=== PATIENT | male | born 1970 | race Caucasian/White ===

== ENCOUNTER 2017-01-20 22:11 | Emergency (ER) | payer MEDICARE, BC ==
[~2017-01-20] VITALS: Ht 167.6 cm; Wt 81.8 kg
[~2017-01-20 22:11] MED LIST: ATIVAN 1MG T1 MG/TAB PO; CATAPRES-TTS 20.2 M1 TD; KLONOPIN 0.5MG0.5 MG PO; KLONOPIN2 MG PO; ROXICODONE 55 MG/TAB PO
[2017-01-20] MEDS ORDERED: ULTRAM 50MG TAB50 MG PO (22:21)
[2017-01-20] MEDS ORDERED: KLONOPIN 0.5MG0.5 MG PO (22:21)
[2017-01-20 22:22] VITALS: TEMP 98.9
[2017-01-20] MEDS ORDERED: SOMA 350MG350 MG/TAB PO (22:22)
[2017-01-20 23:21] VITALS: BP 145/91; PULSE 97
== END 2017-01-20 23:22 | disposition home or self-care (01) ==
LOC: COL.ER 22:11
DX: R10.2 Pelvic and perineal pain (principal); I10 Essential (primary) hypertension; F41.9 Anxiety disorder, unspecified; G89.29 Other chronic pain; Z87.39 Personal history of other diseases of the musculoskeletal system and connective tissue; Z90.89 Acquired absence of other organs
CPT/HCPCS: J1170

== ENCOUNTER → 2017-03-06 | Outpatient (REF) ==
[~2017-03-06] MED LIST changes: +SOMA 350MG350 MG/TAB PO; +ULTRAM 50MG TAB50 MG PO
[2017-03-06 19:00] LABS: PSA-TOTAL 0.22 ng/mL (0-4); THYROID STIMULATING HORMONE 2.06 uIU/mL (0.465-4.680)
== END ==
LOC: ZLAB.WCH 18:12
PROVIDERS: Internal Medicine
DX: Z01.89 Encounter for other specified special examinations (principal)
CPT/HCPCS: G0103

== ENCOUNTER → 2017-08-06 | Outpatient (CLI) | payer MEDICARE, BC | LOC: COL.RAD 09:23 | DX: M51.26 Other intervertebral disc displacement, lumbar region (principal); S39.93XA Unspecified injury of pelvis, initial encounter; G58.8 Other specified mononeuropathies; G89.29 Other chronic pain; Z98.890 Other specified postprocedural states | CPT/HCPCS: A9585 ==

== ENCOUNTER 2017-09-05 20:48 | Emergency (ER) | payer MEDICARE, BC ==
[~2017-09-05] VITALS: Ht 167.6 cm; Wt 79.5 kg
[2017-09-05 20:51] VITALS: TEMP 97.6
[2017-09-05] MEDS ORDERED: CATAPRES 0.1MG0.1 MG PO (21:19)
[2017-09-05] MEDS ORDERED: SOMA 350MG350 MG/TAB PO (21:21)
[2017-09-05 21:23] LABS: BASO % 0.5 % (0.0-2.0); EOS # 0.1 (0.0-0.7); EOS % 1.4 % (0-4.0); GRAN # 5.2 (1.4-6.5); GRAN % 63.7 % (42.2-75.2); HEMATOCRIT 44.5 % (42.0-52.0); HEMOGLOBIN 15.3 g/dl (13.5-18.0); LYMPH # 1.8 (1.2-3.4); LYMPH % 22.3 % (20.0-51.0); MEAN CELL VOLUME 91 fl (80.0-100.0); MEAN CORPUSCULAR HEMOGLOBIN 31 pg (27.0-31.0); MEAN CORPUSCULAR HGB CONC 34 g/dl (33.0-37.0); MEAN PLATELET VOLUME 10.9 fl (7.4-10.4); MONO % 11.9 % (1.7-9.3); PLATELET COUNT 213 K/mm3 (130-400); RED BLOOD COUNT 4.91 M/mm3 (4.20-5.60); REDCELL DISTRIBUTION WIDTH-CV 13.5 % (11.5-14.5)
[2017-09-05 21:29] LABS: PROTHROMBIN TIME 11.5 SECONDS (9.7-12.8)
[2017-09-05 21:32] LABS: PARTIAL THROMBOPLASTIN TIME 31.1 SECONDS (26.0-37.0)
[2017-09-05 21:34] LABS: ALANINE AMINOTRANSFERASE 34 U/L (21-72); ALBUMIN 4.9 gm/dL (3.5-5.0); ALKALINE PHOSPHATASE 89 U/L (50-136); ANION GAP 14 mmol/L (7-16); AST,SGOT 20 U/L (15-37); BILIRUBIN,TOTAL 0.5 mg/dL (0.0-1.0); BLOOD UREA NITROGEN 10 mg/dL (9-20); CALCIUM 9.5 mg/dL (8.4-10.2); CARBON DIOXIDE 24 mmol/L (22-30); CHLORIDE 101 mmol/L (98-107); CREATININE, serum 0.85 mg/dL (0.66-1.25); GLUCOSE 97 mg/dL (74-106); POTASSIUM 3.6 mmol/L (3.4-5.0); SODIUM 139 mmol/L (137-145); TOTAL PROTEIN 7.6 gm/dL (6.4-8.2)
[2017-09-05 21:45] LABS: TROPONIN-I < 0.012 ng/mL (0.000-0.034)
[2017-09-05 22:00] VITALS: BP 139/106; PULSE 86
== END 2017-09-05 22:55 | disposition home or self-care (01) ==
LOC: COL.ER 20:48
PROVIDERS: Family Medicine
DX: I10 Essential (primary) hypertension (principal); F11.23 Opioid dependence with withdrawal
CPT/HCPCS: J1885; J2550; J7030

== ENCOUNTER → 2018-04-07 | Outpatient (REF) ==
[~2018-04-07] MED LIST changes: +CATAPRES 0.1MG0.1 MG PO
== END ==
LOC: ZLAB.WCH 16:06
DX: Z01.89 Encounter for other specified special examinations (principal)
CPT/HCPCS: G0103

== ENCOUNTER 2018-07-16 09:27 | Day surgery (SDC) | payer MEDICARE, BC ==
[~2018-07-16] VITALS: Ht 167.6 cm; Wt 87.1 kg
[2018-07-16] VITALS (9 sets, daily range): BP systolic 112–151; BP diastolic 75–100; PULSE 93–105; TEMP 97.5–99
[2018-07-16] MEDS ORDERED: ULTRAM 50MG TAB50 MG PO (10:45)
[2018-07-16] MEDS ORDERED: KLONOPIN 1MG1 MG PO (10:46)
[2018-07-17 00:50] VITALS: BP 131/78; PULSE 88; TEMP 98.1
[2018-07-17 03:33] VITALS: BP 127/79; PULSE 97; TEMP 97.8
[2018-07-17 08:28] VITALS: BP 126/86; PULSE 90; TEMP 97.8
[2018-07-17 11:59] VITALS: BP 128/76; PULSE 84; TEMP 98.5
== END 2018-07-17 14:10 | disposition home or self-care (01) ==
LOC: SDCO 09:27 → SURG 14:15 → SDCO 07-17 14:10
DX: K40.90 Unilateral inguinal hernia, without obstruction or gangrene, not specified as recurrent (principal); G89.29 Other chronic pain; R10.30 Lower abdominal pain, unspecified; R10.2 Pelvic and perineal pain; N42.83 Cyst of prostate; N40.1 Benign prostatic hyperplasia with lower urinary tract symptoms; R30.0 Dysuria; R35.1 Nocturia; R39.15 Urgency of urination; R35.0 Frequency of micturition; R39.198 Other difficulties with micturition; I10 Essential (primary) hypertension; Z87.442 Personal history of urinary calculi; N41.1 Chronic prostatitis; Z87.891 Personal history of nicotine dependence; Z79.899 Other long term (current) drug therapy; Z84.1 Family history of disorders of kidney and ureter; Z98.52 Vasectomy status
CPT/HCPCS: OP; C1781; J0690; J1100; J1170; J1885; J2405; J2704; J2710; J3010; J3480; J7120

== ENCOUNTER 2019-06-22 15:10 | Inpatient (IN) | payer MEDICARE, BC ==
[~2019-06-22] VITALS: Ht 167.6 cm; Wt 86.5 kg
[~2019-06-22 15:10] MED LIST changes: +KLONOPIN 1MG1 MG PO
[2019-07-16] VITALS (12 sets, daily range): BP systolic 100–143; BP diastolic 68–99; PULSE 99–124; TEMP 97.7–98.4
--- NOTE | 2019-07-16 06:48 | NUR ---
Patient arrived to [facility] for admission at 0600. He ambulates with steady gait. He is alert and oriented. His father, Kihei, accompanies him. Procedure confirmed, denies any questions, and verbalizes understanding. Patient states he was nauseated by the ERAS prep medications. He has been up since 0300 dry-heaving. He was unable to drink his pre-op gatorade, but completed all other aspects of the prep. His vitals are stable on room air. Notified KELLY Sommers of nausea - given 4mg IV Zofran preop, in addition to his ordered pre-op medications. PIV started in right hand with x1 attempt and no complications. Breath sounds clear bilaterally to auscultation. Clear S1S2 heart tones heard with regular rate noted. Right pupil is 4mm, round, reactive. Left pupil is 3mm, round, reactive. Moves all extremities equally and freely. Denies any pain, numbness, or tingling. +2 radial, DP, and PT pulses palpable. Dad, Krunal, at the bedside. Call light in reach.
--- NOTE | 2019-07-16 06:50 | NUR ---
Patient to PACU at this time for epidural with anesthesia. Patient belongings bags x2 taken to PACU with patient label on them at this time.
--- NOTE | 2019-07-16 11:30 | NUR ---
Patient has been having uncontrolled pain since getting back from surgery. He has an epidural. Anesthesia notified. They are in seeing him now. Patient stated that he feels like he either has to void or pass gas. Denies nausea. Explained this is what happens sometimes with this surgery and that the pain should calm down. Explained to use his epidural to control his pain. Explained how it works. Patient verbalized understanding. Call light within reach.
[2019-07-16 13:19] LABS: HEMATOCRIT 35.4 % (42.0-52.0); HEMOGLOBIN 11.8 g/dl (13.5-18.0); MEAN CELL VOLUME 92 fl (80.0-100.0); MEAN CORPUSCULAR HEMOGLOBIN 31 pg (27.0-31.0); MEAN CORPUSCULAR HGB CONC 33 g/dl (33.0-37.0); MEAN PLATELET VOLUME 10.7 fl (7.4-10.4); PLATELET COUNT 221 K/mm3 (130-400); RED BLOOD COUNT 3.85 M/mm3 (4.20-5.60); REDCELL DISTRIBUTION WIDTH-CV 12.8 % (11.5-14.5)
[2019-07-16 14:49] LABS: HEMOGLOBIN 11.6 g/dl (13.5-18.0)
[2019-07-16 14:51] LABS: HEMATOCRIT 34.5 % (42.0-52.0)
--- NOTE | 2019-07-16 18:09 | NUR ---
Patient resting comfortably throughout the afternoon, pleasant to converse with, states no further needs at this time, call light within reach, reported off to Lolita DOHERTY
--- NOTE | 2019-07-16 21:15 | NUR ---
Patient wants to stand at bedside. Assisted at this time. Does well. Back to bed, mildly shaky afterwards. Nichole drain to LIS, drsg to lower abdomen with shadowing. Burroughs cares provided. Urine peach colored. Remains on sips/chips until AM. Epidural infusing, pain is controlled, site to back is dry. Offers no concerns at this time.
[2019-07-17] VITALS (9 sets, daily range): BP systolic 125–158; BP diastolic 80–101; PULSE 63–113; TEMP 97.9–98.7
--- NOTE | 2019-07-17 02:26 | NUR ---
PATIENT COMPLAINS OF "GAS" PAINS. LEVSIN GIVEN. PT STOOD AT BEDSIDE AGAIN, THINKING THIS WOULD HELP THE DISCOMFORT. HAS NOT PASSED ANY FLATUS.
--- NOTE | 2019-07-17 03:45 | NUR ---
CHANGED DRAIN SPONGE AROUND FRANCISCO DRAINS DUE TO SATURATION. PATIENT STILL REPORTS GAS DISCOMFORT. ENCOURAGED TO CONTINUE USING THE EPIDURAL PAIN MANAGEMENT. IV SITE TO RIGHT HAND WITHOUT REDNESS OR SWELLING.
[2019-07-17 07:29] LABS: BASO % 0.1 % (0.0-2.0); GRAN # 13.8 (1.4-6.5); GRAN % 86.2 % (42.2-75.2); LYMPH # 0.7 (1.2-3.4); LYMPH % 4.4 % (20.0-51.0); MEAN CELL VOLUME 90 fl (80.0-100.0); MEAN CORPUSCULAR HGB CONC 34 g/dl (33.0-37.0); MEAN PLATELET VOLUME 10.9 fl (7.4-10.4); MONO # 1.4 (0.1-0.6); MONO % 8.7 % (1.7-9.3); PLATELET COUNT 208 K/mm3 (130-400); RED BLOOD COUNT 3.27 M/mm3 (4.20-5.60); REDCELL DISTRIBUTION WIDTH-CV 13.1 % (11.5-14.5)
[2019-07-17 07:30] LABS: HEMATOCRIT 29.5 % (42.0-52.0); HEMOGLOBIN 9.9 g/dl (13.5-18.0); MEAN CORPUSCULAR HEMOGLOBIN 30 pg (27.0-31.0)
[2019-07-17 07:36] LABS: CALCIUM 8.2 mg/dL (8.4-10.2); POTASSIUM 4.8 mmol/L (3.4-5.0)
--- NOTE | 2019-07-17 10:27 | NUR ---
AMRIK met with the patient and the patient's father, Roman (ph#[phone]), to discuss discharge plan. The patient lives in [place] with his parents. He states that he has been staying with him, due to his recent health problems. He reports independence with ADLs and does not have any DME. The patient's PCP is Dr. Eze Cruz and he receives his medications at [facility]. He reports no difficulties obtaining his meds. The patient does not have advanced directives completed, but he was interested in obtaining a form for DPOA-HC. AMRIK provided. The patient plans to return home with his parents upon discharge. No additional needs at this time. The patient expressed some concerns to AMRIK. AMRIK notified Plate Keeper, Velia.
--- NOTE | 2019-07-17 11:00 | NUR ---
Patient is doing well this am. Minimal complaints of pain. No complaints of nausea. Epidural is controlling pain well. Patients family is at bedside. Patient has not passed flatus yet. Explained when he is up to it wel can get him up and walk him. Patient verbalized understanding. Urine is light pink/peach colored, no clots noted. No other changes at this time. Call light within reach.
--- NOTE | 2019-07-17 18:00 | NUR ---
Patient is doing well at this time. Cut and bagged nura drains. Removed dressing from abdomen. Burns are open to air. Patient than walked several rounds on the floor. He used a walker because he felt shakey the first time he got up but did well and does not need the walker. No other changes at this time. Call light within reach.
--- NOTE | 2019-07-17 22:00 | NUR ---
Burroughs catheter care provided. Urine is yellow and clear. Nichole drains bagged in ostomy appliance, scant bloody drainage noted. Epidural continues, denies pain. Is up independently in room. SL to right hand without redness or swelling.
[2019-07-18 04:08] VITALS: BP 124/88; PULSE 91; TEMP 97.9
--- NOTE | 2019-07-18 06:30 | NUR ---
Patient up in room, medicated with Cipro and Clonazepam at this time. Denies needs at this time.
[2019-07-18 08:00] VITALS: TEMP 97.9
--- NOTE | 2019-07-18 08:00 | NUR ---
PATIENT IS AMBULATING INDEPENDENTLY WITHIN THE ROOM UPON ENTRY. PATIENT IS A&OX4. TACHYCARDIA NOTED, VSS. BOWEL SOUNDS ACTIVE ALL FOUR QUADRANTS. PATIENT STATES THAT HE HAS HAD SOME NAUSEA, BUT DENIES ANY EPISODES OF EMESIS. PATIENT GIVEN A DOSE OF PRN ZOFRAN IV. ABDOMEN IS DISTENDED BUT SOFT UPON PALPATION. MIDLINE INCISION ALLYSSA INTACT. GAUZE AND TAPE DRESSING TO DISTAL PORTION OF MIDLINE INCISION WITH SCANT AMOUNT OF SHADING PRESENT ON DRESSING. FRANCISCO DRAIN TO LEFT-SIDE OF ABDOMEN TO DEPENDENT DRAINAGE WITH SCANT AMOUNT OF BLOODY DRAINAGE PRESENT IN OSTOMY APPLIANCE OVER DRAIN SITE. EPIDURAL SITE DRESSED WITH A BANDAID AND IS CD&I. INDWELLING HAYNES CATHETER TO DEPENDENT DRAINAGE WITH HAZY NATALIE COLORED URINE PRESENT IN HAYNES BAG. RIGHT HAND TO INT. PATIENT STATES THAT HE HAS HAD SOME BLADDER SPASMS THIS MORNING. PATIENT GIVEN PO DOSE OF PRN LEVSIN. CALL LIGHT WITHIN REACH. PATIENT DENIES ANY NEEDS AT THIS TIME.
[2019-07-18 08:40] VITALS: BP 136/88; PULSE 97; TEMP 99.5
[2019-07-18 12:50] VITALS: BP 120/73; PULSE 108; TEMP 98.3
--- NOTE | 2019-07-18 14:13 | NUR ---
PATIENT PRE-MEDICATED PRIOR TO FRANCISCO DRAIN REMOVAL AND DISCHARGE WITH PRN PO NORCO AND LEVSIN FOR BLADDER SPASMS.
--- NOTE | 2019-07-18 15:00 | NUR ---
PATIENTS RIGHT HAND INT DISCONTINUED PER PENDING DISCHARGE. TIP INTACT. FRANCISCO DRAIN DISCONTINUED PER DR. COTA ORDER. PATIENT TOLERATED WELL. GAUZE AND TEGADERM DRESSING IN PLACE OVER DRAIN SITE. PATIENTS HAYNES CHANGED OVER TO A LEG BAG PRIOR TO DISCHARGING HOME. HAYNES CATHETER AND LEG BAG TEACHING COMPLETE. MIDLINE INCISION RE-DRESSED WITH GAUZE AND HYPAFIX. ALL QUESTIONS ANSWERED. PATIENT PERSONAL BELONGINGS GATHERED. PATIENT AMBULATED TO PERSONAL VEHICLE WITH SURGICAL STAFF. PATIENT DISCHARGED.
== END 2019-07-18 15:50 | disposition home or self-care (01) | DRG 708 ==
LOC: INPTSU 07-16 05:43 → SURG 07-16 07:30 → JCC 07-16 11:06
PROVIDERS: Nurse Anesthetist, Certified Registered; ADMIT Urology
PROC: 0VT00ZZ Resection of Prostate, Open Approach (ICD-10-PCS; principal; 2019-07-16 07:30)
DX: N42.9 Disorder of prostate, unspecified (principal); R10.2 Pelvic and perineal pain; G89.29 Other chronic pain
CPT/HCPCS: A9284; J0330; J0690; J2250; J2405; J2704; J3010; J3480; J7120

== ENCOUNTER 2020-02-22 10:12 | Emergency (ER) | payer MEDICARE, BC ==
[~2020-02-22] VITALS: Ht 167.6 cm; Wt 88.6 kg
[2020-02-22 10:29] VITALS: BP 159/70; TEMP 97.1
[2020-02-22 10:56] LABS: BASO % 0.4 % (0.0-2.0); EOS # 0.1 (0.0-0.7); EOS % 0.9 % (0-4.0); GRAN # 7.2 (1.4-6.5); HEMATOCRIT 40.2 % (42.0-52.0); HEMOGLOBIN 13.2 g/dl (13.5-18.0); LYMPH # 1.6 (1.2-3.4); LYMPH % 16.4 % (20.0-51.0); MEAN CELL VOLUME 84 fl (80.0-100.0); MEAN CORPUSCULAR HEMOGLOBIN 28 pg (27.0-31.0); MEAN CORPUSCULAR HGB CONC 33 g/dl (33.0-37.0); MEAN PLATELET VOLUME 10.2 fl (7.4-10.4); MONO # 0.8 (0.1-0.6); MONO % 7.9 % (1.7-9.3); PLATELET COUNT 227 K/mm3 (130-400); RED BLOOD COUNT 4.77 M/mm3 (4.20-5.60); REDCELL DISTRIBUTION WIDTH-CV 15.3 % (11.5-14.5)
[2020-02-22 11:10] LABS: ALBUMIN 4.3 gm/dL (3.5-5.0); BILIRUBIN,TOTAL 0.5 mg/dL (0.0-1.0); C-REACTIVE PROTEIN 1.3 mg/dL (0.0-0.9); CALCIUM 8.6 mg/dL (8.4-10.2); CREATININE, serum 1.09 (0.66-1.25); POTASSIUM 4.1 mmol/L (3.4-5.0); TOTAL PROTEIN 7.3 gm/dL (6.4-8.2)
[2020-02-22 11:53] LABS: COLLECTION METHOD CLEAN CATCH
[2020-02-22 12:03] LABS: MUCOUS Present /lpf; PH 5 (5-8); SQUAMOUS EPITHELIAL 0-2 /hpf; URINE APPEARANCE Hazy; URINE BACTERIA None Seen /hpf; URINE BILIRUBIN Negative (NEGATIVE); URINE BLOOD 3+ (NEGATIVE); URINE COLOR Yellow; URINE GLUCOSE Negative (NEGATIVE); URINE KETONE Trace (NEGATIVE); URINE LEUKOCYTE ESTERASE Negative (NEGATIVE); URINE NITRATE Negative (NEGATIVE); URINE PROTEIN(semi-quant) Negative (NEGATIVE); URINE RBC >50 /hpf; URINE UROBILINOGEN Negative (NEGATIVE)
[2020-02-22] MEDS ORDERED: NORCO 325 MG-51 TAB PO (13:50)
[2020-02-22 14:14] VITALS: PULSE 84
== END 2020-02-22 14:12 | disposition home or self-care (01) ==
LOC: COL.ER 10:12
PROVIDERS: Family Medicine
DX: N20.1 Calculus of ureter (principal)
CPT/HCPCS: J1100; J1200; J1885; J2270; J2405; J7120; Q9967

== ENCOUNTER 2024-03-29 06:11 | Emergency (ER) | payer MEDICARE, BC ==
[~2024-03-29] VITALS: Ht 167.6 cm; Wt 97.7 kg
[~2024-03-29 06:11] MED LIST changes: +NORCO 325 MG-51 TAB PO
[2024-03-29 06:17] VITALS: BP 124/81; TEMP 98.1
[2024-03-29] MEDS ORDERED: DOXYCYCLINE 10100 MG PO (06:52)
[2024-03-29] MEDS ORDERED: CEPHALEXIN500 M1 PO (06:52)
[2024-03-29 07:19] VITALS: PULSE 84
== END 2024-03-29 07:22 | disposition home or self-care (01) ==
LOC: COL.ER 06:11
DX: L03.011 Cellulitis of right finger (principal); Z87.891 Personal history of nicotine dependence; Z88.2 Allergy status to sulfonamides